=== PATIENT | female | born 1955 | race Hispanic/Latino ===

== ENCOUNTER → 2025-03-09 | Outpatient (CLI) | payer OTHER ==
--- NOTE | 2025-03-10 05:37 | HMCIMG ---
EXAM: Ultrasound Abdomen Complete. CLINICAL HISTORY: Elevated liver function tests. History of cholecystectomy. COMPARISON: None available. TECHNIQUE: Grayscale and color Doppler ultrasound evaluation of the abdomen was performed. FINDINGS: Liver: The liver measures approximately 15.5 cm in craniocaudal dimension. Hepatic parenchyma is diffusely increased in echogenicity with mildly decreased through-transmission, compatible with hepatic steatosis. No focal hepatic mass is identified. No intrahepatic biliary ductal dilatation. Gallbladder: Surgically absent. Biliary Tree: Common bile duct measures up to 8 mm in diameter, which can be within expected limits in the setting of prior cholecystectomy. No choledocholithiasis is visualized. Pancreas: Visualized portions of the pancreas appear within normal limits without focal mass or ductal dilatation. Portions are obscured by overlying bowel gas. Spleen: The spleen measures approximately 9.6 x 3.2 x 2.5 cm, within normal limits. Normal echotexture without focal lesion. Right Kidney: The right kidney measures approximately 10.6 x 5.9 x 5.3 cm. Normal cortical echogenicity and thickness. No hydronephrosis, nephrolithiasis, or focal mass. Left Kidney: The left kidney measures approximately 10.3 x 5.5 x 4.9 cm. Normal cortical echogenicity and thickness. No hydronephrosis, nephrolithiasis, or focal mass. IVC: Visualized portions of the inferior vena cava are patent and unremarkable. Aorta: Visualized abdominal aorta is normal in caliber. IMPRESSION: 1. Diffuse hepatic steatosis, which may account for the patients elevated liver function tests. Correlate clinically and with laboratory evaluation. 2. Status post cholecystectomy with common bile duct measuring up to 8 mm, which can be a normal post-cholecystectomy finding. No sonographic evidence of biliary obstruction. 3. Otherwise unremarkable abdominal ultrasound. RECOMMENDATIONS: Per ACR guidelines, in patients with hepatic steatosis and elevated liver enzymes, clinical correlation and laboratory follow-up are recommended. Consider risk factor modification and, if clinically indicated, further evaluation with elastography or MRI for fibrosis assessment. No routine imaging follow-up is required for the common bile duct size in the absence of symptoms or worsening laboratory abnormalities. /[place]
== END | disposition home or self-care (01) ==
LOC: RAH 08:15
PROVIDERS: ATTEND Nurse Practitioner Family
DX: K76.0 Fatty (change of) liver, not elsewhere classified (principal); R79.89 Other specified abnormal findings of blood chemistry; Z90.49 Acquired absence of other specified parts of digestive tract
CPT/HCPCS: 76700